=== PATIENT | male | born 1990 | race Caucasian/White ===

== ENCOUNTER 2016-12-25 18:33 | Emergency (ER) | payer OTHER ==
[2016-12-25] MEDS ORDERED: KETOROLAC 30 MG/ML VIAL (J1885) As Ordered ONE (19:38)
[2016-12-25 19:45] LABS: BASO % 0.4 % (0.0-1.0); EOS % 0.3 % (0.0-3.0); LARGE UNSTAINED CELL # 0.2 K/mm3 (0.0-0.4); LARGE UNSTAINED CELL % 2.2 % (0.0-4.0); LYMPH # 1.4 K/mm3 (1.5-6.5); LYMPH % 18.4 % (24.0-44.0); MEAN CORPUSCULAR HEMOGLOBIN 32.1 pg (27.0-33.0); MEAN CORPUSCULAR VOLUME 94.3 fl (80.0-96.0); MONO # 0.5 K/mm3 (0.0-0.8); MONO % 6.9 % (0.0-5.0); NEUTROPHILS % 71.8 % (36.0-66.0); PLATELET COUNT, AUTOMATED 248 k/mm3 (150-450); RED CELL DISTRIBUTION WIDTH 12.5 % (11.5-14.5)
[2016-12-25 20:13] LABS: ALBUMIN 4.6 GM/DL (3.2-5.2); ALBUMIN/GLOBULIN RATIO 1.21 (1.00-1.93); ALKALINE PHOSPHATASE 75 U/L (45-117); ALT/SGPT 33 U/L (12-78); AMYLASE 64 U/L (25-115); ANION GAP 8 MEQ/L (8-16); AST/SGOT 29 U/L (15-37); BILIRUBIN,DIRECT 0.1 MG/DL (0.0-0.2); BILIRUBIN,TOTAL 0.4 MG/DL (0.2-1.0); BLOOD UREA NITROGEN 11 MG/DL (7-18); CALCIUM LEVEL 9.1 MG/DL (8.5-10.1); CARBON DIOXIDE LEVEL 27 MEQ/L (21-32); CHLORIDE LEVEL 104 MEQ/L (98-107); GLOMERULAR FILTRATION RATE > 60.0 (>60); GLUCOSE, FASTING 102 MG/DL (70-105); POTASSIUM SERUM 4.2 MEQ/L (3.5-5.1); SODIUM LEVEL 139 MEQ/L (136-145); TOTAL PROTEIN 8.4 GM/DL (6.4-8.2)
[2016-12-25] MEDS ORDERED: MORPHINE 4 MG/ML 1ML SYRINGE As Ordered ONE (20:18)
[2016-12-25 21:08] LABS: CALCIUM OXALATE CRYSTALS SMALL
--- NOTE | 2016-12-25 22:08 | EDDOCDS ---
Nurse's Notes [facility] Name: Isreal Marion Age: 26 yrs Sex: Male : 1990 Arrival Date: 12/25/2016 Time: 18:33 Bed I4 / M4 Private MD: Other - Complete Info On Cds Diagnosis: Low back pain-LEFT Presentation: 12/25 18:41 Presenting complaint: Patient states: c/o abd pain - radiates from left lower back to bcj LUQ. + nausea no vomiting. no diarrhea. last BM last night. denies dysuria. no temp at home. Risk factors: the patient reports not having a history of previous torsion. Adult Sepsis Screening: The patient does not have new or worsening altered mentation. Patient's respiratory rate is less than 22. Systolic blood pressure is greater than 100. Patient has a qSOFA score of 0- Negative Sepsis Screen. Suicide/Homicide risk assessment- the patient denies having any suicidal and/or homicidal ideations and does not present with any other emotional, behavioral or mental health complaints. Status: Patient is not a field services manager or dependent. Transition of care: patient was not received from another setting of care. 18:41 Acuity: PATRICK Level 3 bcj 18:41 Method Of Arrival: Walkin/Carried/Asstd bcj Triage Assessment: 18:43 General: Appears in no apparent distress, comfortable, Behavior is cooperative. Pain: bcj Location: abdomen Pain currently is 6 out of 10 on a pain scale. HIV screening NA for this visit Offered previously. GI: Abdomen is flat. Historical: - Allergies: no known allergies; - Home Meds: 1. none - PMHx: none; - PSHx: none; - Social history: Smoking status: Patient states was never smoker of tobacco. No barriers to communication noted, The patient speaks fluent Dutch, Speaks appropriately for age. - Family history: Not pertinent. - : The pt / caregiver states he / she is not on anticoagulants. Home medication list is obtained from the patient. - Exposure Risk Screening:: None identified. Screenin:01 Screening information is obtained from the patient. Fall risk: No risks identified. [facility] Assistance ADL's: requires no assistance with activities of daily living. Abuse/DV Screen: The patient / caregiver reports he/she is: not in a situation that causes fear, pain or injury. Nutritional screening: No deficits noted. Advance Directives: There is no active DNR order. home support is adequate. Assessment: 19:41 Adult Sepsis Screening: The patient does not have new or worsening altered mentation. dsf Patient's respiratory rate is less than 22. Systolic blood pressure is greater than 100. Patient has a qSOFA score of 0- Negative Sepsis Screen. General: Appears in no apparent distress, Behavior is appropriate for age, cooperative. Pain: Location: left flank Pain currently is 7 out of 10 on a pain scale. Pain does not radiate. Quality of pain is described as burning. Neurological: Level of Consciousness is awake, alert. Cardiovascular: Capillary refill < 3 seconds. Respiratory: Airway is patent Respiratory effort is even, unlabored, Respiratory pattern is regular, symmetrical. GI: Abdomen is non- distended. Derm: Skin is pink, warm & dry. 20:35 General: Appears in no apparent distress, Behavior is appropriate for age, cooperative. dsf Pain: Pain currently is 4 out of 10 on a pain scale. Neurological: No deficits noted. Cardiovascular: No deficits noted. Respiratory: No deficits noted. Derm: Skin is pink, warm & dry. 22:01 General: Appears in no apparent distress, comfortable, Behavior is appropriate for age, cjh cooperative. Pain: Location: back Pain currently is 3 out of 10 on a pain scale. Neurological: Level of Consciousness is awake, alert, Oriented to person, place, time. Respiratory: Airway is patent Respiratory effort is even, unlabored, Respiratory pattern is regular, symmetrical. GI: assessed by PA assessed by PA. Vital Signs: 18:37 BP 152 / 86; Pulse 66; Resp 18 S; Temp 98.4(O); Pulse Ox 100% on R/A; Weight 94.8 kg gr2 (R); Height 69 in. (175.26 cm) (R); Pain 6/10; 21:39 BP 132 / 85; Pulse 56; Resp 18; Temp 99.0; Pulse Ox 97% on R/A; Pain 3/10; rn1 18:37 Body Mass Index 30.86 (94.80 kg, 175.26 cm) gr2 Vitals: 18:37 Log In Time: December 25, 2016 at 18:37. gr2 ED Course: 18:34 Patient visited by Elieser Joshi. gr2 18:34 Patient moved to Waiting gr2 18:37 Other - Complete Info On Cds is Private Physician. gr2 18:38 Patient visited by Elieser Joshi. gr2 18:43 Triage Initiated bcj 18:44 Patient visited by Mykel Paredes, SHIKHA. bcj 18:44 Patient moved to Triage 3 bcj 19:05 [facility] Dobson [facility] dt4 19:05 Ama Parsons MD is Attending Physician. dt4 19:05 Patient visited by Lucinda Dobson PA-C. dt4 19:27 Patient moved to I4 / M4 sew 19:34 Patient moved to Ultrasound en 19:41 Amylase Sent. dsf 19:41 Basic Metabolic Profile Sent. dsf 19:41 CBC with Diff Sent. dsf 19:41 Lipase Sent. dsf 19:41 Liver Profile Sent. dsf 19:41 Inserted saline lock: 18 gauge in right antecubital area The patient tolerated the dsf procedure well. 19:51 Patient moved to I4 / M4 en 20:35 Urine Culture Sent. rn1 20:35 Urinalysis Sent. rn1 20:36 Patient visited by Ayana Lund RN. dsf 21:32 [facility] is Referral Physician. dt4 21:45 Patient name changed from Isreal\Rosendo\Adelfo\S\Doni\S\ to Isreal\Rosendo\Yaya\S\Doni. EDMS 21:47 [facility] Payment Agreement was scanned into [employer] and attached to record. [facility] 22:01 The patient / caregiver is instructed regarding the plan of care and ED course. [facility] 22:01 Discontinued lock intact, bleeding controlled, pressure dressing applied, No [facility] redness/swelling at site. No procedures done that require assistance. Administered Medications: 19:53 Drug: ketorolac 30 mg [ketorolac 30 mg/mL (1 mL) injection solution (1 mL)] Route: IVP; dsf Site: right antecubital; 20:26 Drug: morphine 4 mg [morphine 4 mg/mL intravenous cartridge (1 mL)] Route: IVP; Site: jo3 right antecubital; Order Results: Lab Order: Amylase; SPEC'M 12/25/16 19:37 Test: AMYLASE; Value: 64; Range: 25-115; Units: U/L; Status: F Lab Order: Basic Metabolic Profile; SPEC'M 12/25/16 19:37 Test: GLUCOSE, FASTING; Value: 102; Range: 70-105; Units: MG/DL; Status: F Test: BLOOD UREA NITROGEN; Value: 11; Range: 7-18; Units: MG/DL; Status: F Test: CREATININE FOR GFR; Value: 1.00; Range: 0.70-1.30; Units: MG/DL; Status: F Test: GLOMERULAR FILTRATION RATE; Value: > 60.0; Range: >60; Status: F Test: SODIUM LEVEL; Value: 139; Range: 136-145; Units: MEQ/L; Status: F Test: POTASSIUM SERUM; Value: 4.2; Range: 3.5-5.1; Units: MEQ/L; Status: F Test: CHLORIDE LEVEL; Value: 104; Range: 98-107; Units: MEQ/L; Status: F Test: CARBON DIOXIDE LEVEL; Value: 27; Range: 21-32; Units: MEQ/L; Status: F Test: ANION GAP; Value: 8; Range: 8-16; Units: MEQ/L; Status: F Test: CALCIUM LEVEL; Value: 9.1; Range: 8.5-10.1; Units: MG/DL; Status: F Test Note: ; Units are mL/min/1.73 m2 Chronic Kidney Disease Staging per NKF: Stage I & II GFR >=60 Normal to Mildly Decreased Stage III GFR 30-59 Moderately Decreased Stage IV GFR 15-29 Severely Decreased Stage V GFR <15 Very Little GFR Left ESRD GFR <15 on SALON/SPA MANAGER Lab Order: CBC with Diff; SPEC'M 12/25/16 19:37 Test: WHITE BLOOD COUNT; Value: 7.0; Range: 4.0-10.0; Units: K/mm3; Status: F Test: RED BLOOD COUNT; Value: 4.78; Range: 4.30-6.10; Units: M/mm3; Status: F Test: HEMOGLOBIN; Value: 15.3; Range: 14.0-18.0; Units: g/dl; Status: F Test: HEMATOCRIT; Value: 45.1; Range: 42.0-52.0; Units: %; Status: F Test: MEAN CORPUSCULAR VOLUME; Value: 94.3; Range: 80.0-96.0; Units: fl; Status: F Test: MEAN CORPUSCULAR HEMOGLOBIN; Value: 32.1; Range: 27.0-33.0; Units: pg; Status: F Test: MEAN CORPUSCULAR HGB CONC; Value: 34.0; Range: 32.0-36.5; Units: g/dl; Status: F Test: RED CELL DISTRIBUTION WIDTH; Value: 12.5; Range: 11.5-14.5; Units: %; Status: F Test: PLATELET COUNT, AUTOMATED; Value: 248; Range: 150-450; Units: k/mm3; Status: F Test: NEUTROPHILS %; Value: 71.8; Range: 36.0-66.0; Abnormal: Above high normal; Units: %; Status: F Test: LYMPH %; Value: 18.4; Range: 24.0-44.0; Abnormal: Below low normal; Units: %; Status: F Test: MONO %; Value: 6.9; Range: 0.0-5.0; Abnormal: Above high normal; Units: %; Status: F Test: EOS %; Value: 0.3; Range: 0.0-3.0; Units: %; Status: F Test: BASO %; Value: 0.4; Range: 0.0-1.0; Units: %; Status: F Test: LARGE UNSTAINED CELL %; Value: 2.2; Range: 0.0-4.0; Units: %; Status: F Test: NEUTROPHILS #; Value: 5.0; Range: 1.8-7.7; Units: K/mm3; Status: F Test: LYMPH #; Value: 1.4; Range: 1.5-6.5; Abnormal: Below low normal; Units: K/mm3; Status: F Test: MONO #; Value: 0.5; Range: 0.0-0.8; Units: K/mm3; Status: F Test: EOS #; Value: 0.0; Range: 0.0-0.50; Units: K/mm3; Status: F Test: BASO #; Value: 0.0; Range: 0.0-0.2; Units: K/mm3; Status: F Test: LARGE UNSTAINED CELL #; Value: 0.2; Range: 0.0-0.4; Units: K/mm3; Status: F Lab Order: Lipase; SPEC'M 12/25/16 19:37 Test: LIPASE; Value: 98; Range: 73-393; Units: U/L; Status: F Lab Order: Liver Profile; SPEC'M 12/25/16 19:37 Test: AST/SGOT; Value: 29; Range: 15-37; Units: U/L; Status: F Test: ALT/SGPT; Value: 33; Range: 12-78; Units: U/L; Status: F Test: ALKALINE PHOSPHATASE; Value: 75; Range: 45-117; Units: U/L; Status: F Test: BILIRUBIN,TOTAL; Value: 0.4; Range: 0.2-1.0; Units: MG/DL; Status: F Test: BILIRUBIN,DIRECT; Value: 0.1; Range: 0.0-0.2; Units: MG/DL; Status: F Test: TOTAL PROTEIN; Value: 8.4; Range: 6.4-8.2; Abnormal: Above high normal; Units: GM/DL; Status: F Test: ALBUMIN; Value: 4.6; Range: 3.2-5.2; Units: GM/DL; Status: F Test: ALBUMIN/GLOBULIN RATIO; Value: 1.21; Range: 1.00-1.93; Status: F Lab Order: Urinalysis; SPEC'M 12/25/16 20:30 Test: APPEARANCE, URINE; Value: CLEAR; Range: CLEAR; Status: F Test: COLOR, URINE; Value: YELLOW; Range: YELLOW; Status: F Test: PH,URINE; Value: 5.0; Range: 5.0-9.0; Units: UNITS; Status: F Test: SPECIFIC GRAVITY URINE AUTO; Value: 1.032; Range: 1.002-1.035; Status: F Test: PROTEIN, URINE AUTO; Value: NEGATIVE; Range: NEGATIVE; Units: mg/dL; Status: F Test: GLUCOSE, URINE (UA) AUTO; Value: NEGATIVE; Range: NEGATIVE; Units: mg/dL; Status: F Test: KETONE, URINE AUTO; Value: 1+; Range: NEGATIVE; Abnormal: Above high normal; Units: mg/dL; Status: F Test: UROBILINOGEN, URINE AUTO; Value: 0.2; Range: 0.0-2.0; Units: mg/dL; Status: F Test: BILIRUBIN, URINE AUTO; Value: NEGATIVE; Range: NEGATIVE; Status: F Test: NITRITE, URINE AUTO; Value: NEGATIVE; Range: NEGATIVE; Status: F Test: LEUKOCYTE ESTERASE, URINE AUTO; Value: NEGATIVE; Range: NEGATIVE; Status: F Test: BLOOD, URINE BLOOD; Value: NEGATIVE; Range: NEGATIVE; Status: F Test: WBC, URINE AUTO; Value: 0; Range: 0-3; Units: /HPF; Status: F Test: RBC, URINE AUTO; Value: 1; Range: 0-3; Units: /HPF; Status: F Test: BACTERIA, URINE AUTO; Value: NEGATIVE; Range: NEGATIVE; Status: F Test: SQUAMOUS EPITHELIAL CELL UR AU; Value: 0; Range: 0-6; Units: /HPF; Status: F Test: MUCUS, URINE; Value: MODERATE; Range: NEGATIVE; Status: F Test: HYALINE CAST, URINE AUTO; Value: 2; Range: 0-1; Units: /LPF; Status: F Test: CALCIUM OXALATE CRYSTALS; Value: SMALL; Range: NONE; Status: F Outcome: 21:34 Discharge ordered by Provider. dt4 22:01 Discharge Assessment: Patient awake, alert and oriented x 3. No cognitive and/or [facility] functional deficits noted. Patient verbalized understanding of disposition instructions. patient administered narcotics - yes. Pt provided with safe discharge. The following High Risk Discharge criteria are identified: None. Discharged to home ambulatory. Condition: good Condition: stable Condition: improved. Discharge instructions given to patient, Instructed on discharge instructions, follow up and referral plans. medication usage, Demonstrated understanding of instructions, medications, Pt was receptive of discharge instructions/ teaching. Prescriptions given X 1. CT Study completed. Property :Personal belongings accompany Pt. 22:08 Patient left the ED. [facility] Signatures: Dispatcher [employer] EDMykel Lora, RN RN Radha MonteiroRN RN Ayana rBianRN RN Brit Gonzalez RN RN [facility] Lorelei Pinon Gainslee gr2 Lucinda Dobson, PA-C PA-C dt4 Kindra Perales Pipo Lerma rn1 Kira Starks Corrections: (The following items were deleted from the chart) 22:02 22:01 Pain: Location: back Pain currently is 7 out of 10 on a pain scale. [facility]
--- NOTE | 2016-12-25 22:08 | EDDOCDS ---
Physician Documentation [facility] Name: Isreal Marion Age: 26 yrs Sex: Male : 1990 Arrival Date: 12/25/2016 Time: 18:33 Bed I4 / M4 Private MD: Other - Complete Info On Cds Disposition: 12/25/16 21:34 Discharged to Home/Self Care. Impression: Low back pain - LEFT. - Condition is Stable. - Discharge Instructions: Back Pain, Adult. - Prescriptions for Naprosyn 500 mg Oral Tablet - take 1 tablet by ORAL route every 12 hours As needed take with food; 30 tablet. - Medication Reconciliation, Local Pharmacy Hours form. - Follow up: Emergency Department; When: As needed; Reason: Worsening of conditions. Follow up: [facility]; When: Call to arrange an appointment; Reason: Recheck today's complaints, Continuance of care, To establish care. - Problem is new. - Symptoms have improved. - Notes: YOUR ULTRASOUND AND LABWORK/URINE TESTS DID NOT SHOW ANY SIGNS OF INFECTION OR ABNORMALITIES TODAY. PLEASE FOLLOW UP WITH PRIMARY CARE IN THE NEXT WEEK TO RECHECK YOUR SYMPTOMS. ANY WORSENING SYMPTOMS, PLEASE RETURN TO THE ER. Historical: - Allergies: no known allergies; - Home Meds: 1. none - PMHx: none; - PSHx: none; - Social history: Smoking status: Patient states was never smoker of tobacco. No barriers to communication noted, The patient speaks fluent Wolof, Speaks appropriately for age. - Family history: Not pertinent. - : The pt / caregiver states he / she is not on anticoagulants. Home medication list is obtained from the patient. - Exposure Risk Screening:: None identified. Vital Signs: 12/25 18:37 BP 152 / 86; Pulse 66; Resp 18 S; Temp 98.4(O); Pulse Ox 100% on R/A; Weight 94.8 kg / gr2 209 lbs (R); Height 69 in. (175.26 cm) (R); Pain 6/10; 21:39 BP 132 / 85; Pulse 56; Resp 18; Temp 99.0; Pulse Ox 97% on R/A; Pain 3/10; rn1 18:37 Body Mass Index 30.86 (94.80 kg, 175.26 cm) gr2 MDM: 19:30 ketorolac 30 mg IVP once ordered. dt4 19:30 IV Saline Lock ordered. dt4 19:30 Undress patient appropriately for examination ordered. dt4 19:30 Amylase Ordered. EDMS 19:30 Basic Metabolic Profile Ordered. EDMS 19:30 CBC with Diff Ordered. EDMS 19:30 Lipase Ordered. EDMS 19:30 Liver Profile Ordered. EDMS 19:30 Urinalysis Ordered. EDMS 19:33 Urine Culture Ordered. EDMS 19:34 ABD US: Limited Ordered. EDMS 19:34 NOTHING BY MOUTH+DIET ordered. EDMS 20:16 morphine 4 mg IVP once ordered. dt4 20:52 Financial registration complete. [facility] 21:47 [facility] Payment Agreement was scanned into [employer] and attached to record. [facility] Administered Medications: 19:53 Drug: ketorolac 30 mg [ketorolac 30 mg/mL (1 mL) injection solution (1 mL)] Route: IVP; dsf Site: right antecubital; 20:26 Drug: morphine 4 mg [morphine 4 mg/mL intravenous cartridge (1 mL)] Route: IVP; Site: jo3 right antecubital; Signatures: Dispatcher [employer] Mykel Goodwin RN Brit Garza RN RN Lucinda Jauregui PA-C PA-C dtKindra Fonseca [facility] Radha Stone RN, Desiree RN dsf The chart was reviewed and I authenticate all verbal orders and agree with the evaluation and treatment provided.Attachments: 21:47 [facility] Payment Agreement [facility] MTDD
--- NOTE | 2016-12-26 08:24 | REP ---
Clinical: Left upper quadrant pain. Technique: Real time hansen scale and color ultrasound examination using curved array transducer. Findings: The spleen is normal in contour, size, echogenicity and without focal splenic lesion identified. Spleen measures 9.6 x 3.1 x 9.1 cm (270 ml). The left kidney is normal in reniform shape and echogenicity without hydronephrosis, nephrolithiasis, cystic or renal mass lesion and measures 13.2 x 5.2 x 5.0 cm. 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 No free fluid in the left upper quadrant. Impression: Essentially normal left upper quadrant including spleen and kidney. 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 Signed by Dread Flores MD 12/26/2016 08:15 A
--- NOTE | 2016-12-27 23:09 | EDDOCDS ---
Nurse's Notes [facility] Name: Isreal Marion Age: 26 yrs Sex: Male : 1990 Arrival Date: 12/25/2016 Time: 18:33 Bed I4 / M4 Private MD: Other - Complete Info On Cds Diagnosis: Low back pain-LEFT Presentation: 12/25 18:41 Presenting complaint: Patient states: c/o abd pain - radiates from left lower back to bcj LUQ. + nausea no vomiting. no diarrhea. last BM last night. denies dysuria. no temp at home. Risk factors: the patient reports not having a history of previous torsion. Adult Sepsis Screening: The patient does not have new or worsening altered mentation. Patient's respiratory rate is less than 22. Systolic blood pressure is greater than 100. Patient has a qSOFA score of 0- Negative Sepsis Screen. Suicide/Homicide risk assessment- the patient denies having any suicidal and/or homicidal ideations and does not present with any other emotional, behavioral or mental health complaints. Status: Patient is not a industrial garage servicer or dependent. Transition of care: patient was not received from another setting of care. 18:41 Acuity: PATRICK Level 3 bcj 18:41 Method Of Arrival: Walkin/Carried/Asstd bcj Triage Assessment: 18:43 General: Appears in no apparent distress, comfortable, Behavior is cooperative. Pain: bcj Location: abdomen Pain currently is 6 out of 10 on a pain scale. HIV screening NA for this visit Offered previously. GI: Abdomen is flat. Historical: - Allergies: no known allergies; - Home Meds: 1. none - PMHx: none; - PSHx: none; - Social history: Smoking status: Patient states was never smoker of tobacco. No barriers to communication noted, The patient speaks fluent Swedish, Speaks appropriately for age. - Family history: Not pertinent. - : The pt / caregiver states he / she is not on anticoagulants. Home medication list is obtained from the patient. - Exposure Risk Screening:: None identified. Screenin:01 Screening information is obtained from the patient. Fall risk: No risks identified. [facility] Assistance ADL's: requires no assistance with activities of daily living. Abuse/DV Screen: The patient / caregiver reports he/she is: not in a situation that causes fear, pain or injury. Nutritional screening: No deficits noted. Advance Directives: There is no active DNR order. home support is adequate. Assessment: 19:41 Adult Sepsis Screening: The patient does not have new or worsening altered mentation. dsf Patient's respiratory rate is less than 22. Systolic blood pressure is greater than 100. Patient has a qSOFA score of 0- Negative Sepsis Screen. General: Appears in no apparent distress, Behavior is appropriate for age, cooperative. Pain: Location: left flank Pain currently is 7 out of 10 on a pain scale. Pain does not radiate. Quality of pain is described as burning. Neurological: Level of Consciousness is awake, alert. Cardiovascular: Capillary refill < 3 seconds. Respiratory: Airway is patent Respiratory effort is even, unlabored, Respiratory pattern is regular, symmetrical. GI: Abdomen is non- distended. Derm: Skin is pink, warm & dry. 20:35 General: Appears in no apparent distress, Behavior is appropriate for age, cooperative. dsf Pain: Pain currently is 4 out of 10 on a pain scale. Neurological: No deficits noted. Cardiovascular: No deficits noted. Respiratory: No deficits noted. Derm: Skin is pink, warm & dry. 22:01 General: Appears in no apparent distress, comfortable, Behavior is appropriate for age, cjh cooperative. Pain: Location: back Pain currently is 3 out of 10 on a pain scale. Neurological: Level of Consciousness is awake, alert, Oriented to person, place, time. Respiratory: Airway is patent Respiratory effort is even, unlabored, Respiratory pattern is regular, symmetrical. GI: assessed by PA assessed by PA. Vital Signs: 18:37 BP 152 / 86; Pulse 66; Resp 18 S; Temp 98.4(O); Pulse Ox 100% on R/A; Weight 94.8 kg gr2 (R); Height 69 in. (175.26 cm) (R); Pain 6/10; 21:39 BP 132 / 85; Pulse 56; Resp 18; Temp 99.0; Pulse Ox 97% on R/A; Pain 3/10; rn1 18:37 Body Mass Index 30.86 (94.80 kg, 175.26 cm) gr2 Vitals: 18:37 Log In Time: December 25, 2016 at 18:37. gr2 ED Course: 18:34 Patient visited by Elieser Joshi. gr2 18:34 Patient moved to Waiting gr2 18:37 Other - Complete Info On Cds is Private Physician. gr2 18:38 Patient visited by Elieser Joshi. gr2 18:43 Triage Initiated bcj 18:44 Patient visited by Mykel Paredes, SHIKHA. bcj 18:44 Patient moved to Triage 3 bcj 19:05 [facility] dt4 19:05 Ama Parsons MD is Attending Physician. dt4 19:05 Patient visited by Lucinda Dobson PA-C. dt4 19:27 Patient moved to I4 / M4 sew 19:34 Patient moved to Ultrasound en 19:41 Amylase Sent. dsf 19:41 Basic Metabolic Profile Sent. dsf 19:41 CBC with Diff Sent. dsf 19:41 Lipase Sent. dsf 19:41 Liver Profile Sent. dsf 19:41 Inserted saline lock: 18 gauge in right antecubital area The patient tolerated the dsf procedure well. 19:51 Patient moved to I4 / M4 en 20:35 Urine Culture Sent. rn1 20:35 Urinalysis Sent. rn1 20:36 Patient visited by Ayana Lund RN. dsf 21:32 [facility] is Referral Physician. dt4 21:45 Patient name changed from Isreal\Rosendo\Adelfo\S\Doni\S\ to Isreal\S\Yaya\S\Doni. EDMS 21:47 [facility] Payment Agreement was scanned into [employer] and attached to record. [facility] 22:01 The patient / caregiver is instructed regarding the plan of care and ED course. [facility] 22:01 Discontinued lock intact, bleeding controlled, pressure dressing applied, No [facility] redness/swelling at site. No procedures done that require assistance. 12/26 08:45 ABD US: Limited Returned. EDMS 12:31 T-Sheet-- Draft Copy was scanned into [employer] and attached to record. gb 12:31 Radiology Report was scanned into [employer] and attached to record. gb Administered Medications: 12/25 19:53 Drug: ketorolac 30 mg [ketorolac 30 mg/mL (1 mL) injection solution (1 mL)] Route: IVP; dsf Site: right antecubital; 20:26 Drug: morphine 4 mg [morphine 4 mg/mL intravenous cartridge (1 mL)] Route: IVP; Site: jo right antecubital; Order Results: Lab Order: Amylase; SPEC'M 12/25/16 19:37 Test: AMYLASE; Value: 64; Range: 25-115; Units: U/L; Status: F Lab Order: Basic Metabolic Profile; SPEC'M 12/25/16 19:37 Test: GLUCOSE, FASTING; Value: 102; Range: 70-105; Units: MG/DL; Status: F Test: BLOOD UREA NITROGEN; Value: 11; Range: 7-18; Units: MG/DL; Status: F Test: CREATININE FOR GFR; Value: 1.00; Range: 0.70-1.30; Units: MG/DL; Status: F Test: GLOMERULAR FILTRATION RATE; Value: > 60.0; Range: >60; Status: F Test: SODIUM LEVEL; Value: 139; Range: 136-145; Units: MEQ/L; Status: F Test: POTASSIUM SERUM; Value: 4.2; Range: 3.5-5.1; Units: MEQ/L; Status: F Test: CHLORIDE LEVEL; Value: 104; Range: 98-107; Units: MEQ/L; Status: F Test: CARBON DIOXIDE LEVEL; Value: 27; Range: 21-32; Units: MEQ/L; Status: F Test: ANION GAP; Value: 8; Range: 8-16; Units: MEQ/L; Status: F Test: CALCIUM LEVEL; Value: 9.1; Range: 8.5-10.1; Units: MG/DL; Status: F Test Note: ; Units are mL/min/1.73 m2 Chronic Kidney Disease Staging per NKF: Stage I & II GFR >=60 Normal to Mildly Decreased Stage III GFR 30-59 Moderately Decreased Stage IV GFR 15-29 Severely Decreased Stage V GFR <15 Very Little GFR Left ESRD GFR <15 on ACID DIPPER Lab Order: CBC with Diff; SPEC'M 12/25/16 19:37 Test: WHITE BLOOD COUNT; Value: 7.0; Range: 4.0-10.0; Units: K/mm3; Status: F Test: RED BLOOD COUNT; Value: 4.78; Range: 4.30-6.10; Units: M/mm3; Status: F Test: HEMOGLOBIN; Value: 15.3; Range: 14.0-18.0; Units: g/dl; Status: F Test: HEMATOCRIT; Value: 45.1; Range: 42.0-52.0; Units: %; Status: F Test: MEAN CORPUSCULAR VOLUME; Value: 94.3; Range: 80.0-96.0; Units: fl; Status: F Test: MEAN CORPUSCULAR HEMOGLOBIN; Value: 32.1; Range: 27.0-33.0; Units: pg; Status: F Test: MEAN CORPUSCULAR HGB CONC; Value: 34.0; Range: 32.0-36.5; Units: g/dl; Status: F Test: RED CELL DISTRIBUTION WIDTH; Value: 12.5; Range: 11.5-14.5; Units: %; Status: F Test: PLATELET COUNT, AUTOMATED; Value: 248; Range: 150-450; Units: k/mm3; Status: F Test: NEUTROPHILS %; Value: 71.8; Range: 36.0-66.0; Abnormal: Above high normal; Units: %; Status: F Test: LYMPH %; Value: 18.4; Range: 24.0-44.0; Abnormal: Below low normal; Units: %; Status: F Test: MONO %; Value: 6.9; Range: 0.0-5.0; Abnormal: Above high normal; Units: %; Status: F Test: EOS %; Value: 0.3; Range: 0.0-3.0; Units: %; Status: F Test: BASO %; Value: 0.4; Range: 0.0-1.0; Units: %; Status: F Test: LARGE UNSTAINED CELL %; Value: 2.2; Range: 0.0-4.0; Units: %; Status: F Test: NEUTROPHILS #; Value: 5.0; Range: 1.8-7.7; Units: K/mm3; Status: F Test: LYMPH #; Value: 1.4; Range: 1.5-6.5; Abnormal: Below low normal; Units: K/mm3; Status: F Test: MONO #; Value: 0.5; Range: 0.0-0.8; Units: K/mm3; Status: F Test: EOS #; Value: 0.0; Range: 0.0-0.50; Units: K/mm3; Status: F Test: BASO #; Value: 0.0; Range: 0.0-0.2; Units: K/mm3; Status: F Test: LARGE UNSTAINED CELL #; Value: 0.2; Range: 0.0-0.4; Units: K/mm3; Status: F Lab Order: Lipase; [facility] 12/25/16 19:37 Test: LIPASE; Value: 98; Range: 73-393; Units: U/L; Status: F Lab Order: Liver Profile; [facility] 12/25/16 19:37 Test: AST/SGOT; Value: 29; Range: 15-37; Units: U/L; Status: F Test: ALT/SGPT; Value: 33; Range: 12-78; Units: U/L; Status: F Test: ALKALINE PHOSPHATASE; Value: 75; Range: 45-117; Units: U/L; Status: F Test: BILIRUBIN,TOTAL; Value: 0.4; Range: 0.2-1.0; Units: MG/DL; Status: F Test: BILIRUBIN,DIRECT; Value: 0.1; Range: 0.0-0.2; Units: MG/DL; Status: F Test: TOTAL PROTEIN; Value: 8.4; Range: 6.4-8.2; Abnormal: Above high normal; Units: GM/DL; Status: F Test: ALBUMIN; Value: 4.6; Range: 3.2-5.2; Units: GM/DL; Status: F Test: ALBUMIN/GLOBULIN RATIO; Value: 1.21; Range: 1.00-1.93; Status: F Lab Order: Urinalysis; [facility] 12/25/16 20:30 Test: APPEARANCE, URINE; Value: CLEAR; Range: CLEAR; Status: F Test: COLOR, URINE; Value: YELLOW; Range: YELLOW; Status: F Test: PH,URINE; Value: 5.0; Range: 5.0-9.0; Units: UNITS; Status: F Test: SPECIFIC GRAVITY URINE AUTO; Value: 1.032; Range: 1.002-1.035; Status: F Test: PROTEIN, URINE AUTO; Value: NEGATIVE; Range: NEGATIVE; Units: mg/dL; Status: F Test: GLUCOSE, URINE (UA) AUTO; Value: NEGATIVE; Range: NEGATIVE; Units: mg/dL; Status: F Test: KETONE, URINE AUTO; Value: 1+; Range: NEGATIVE; Abnormal: Above high normal; Units: mg/dL; Status: F Test: UROBILINOGEN, URINE AUTO; Value: 0.2; Range: 0.0-2.0; Units: mg/dL; Status: F Test: BILIRUBIN, URINE AUTO; Value: NEGATIVE; Range: NEGATIVE; Status: F Test: NITRITE, URINE AUTO; Value: NEGATIVE; Range: NEGATIVE; Status: F Test: LEUKOCYTE ESTERASE, URINE AUTO; Value: NEGATIVE; Range: NEGATIVE; Status: F Test: BLOOD, URINE BLOOD; Value: NEGATIVE; Range: NEGATIVE; Status: F Test: WBC, URINE AUTO; Value: 0; Range: 0-3; Units: /HPF; Status: F Test: RBC, URINE AUTO; Value: 1; Range: 0-3; Units: /HPF; Status: F Test: BACTERIA, URINE AUTO; Value: NEGATIVE; Range: NEGATIVE; Status: F Test: SQUAMOUS EPITHELIAL CELL UR AU; Value: 0; Range: 0-6; Units: /HPF; Status: F Test: MUCUS, URINE; Value: MODERATE; Range: NEGATIVE; Status: F Test: HYALINE CAST, URINE AUTO; Value: 2; Range: 0-1; Units: /LPF; Status: F Test: CALCIUM OXALATE CRYSTALS; Value: SMALL; Range: NONE; Status: F Lab Order: Urine Culture; SPEC'M 12/25/16 20:30 Test: URINE CULTURE; Value: <EXTERNAL COMMENT eCWMed> FULL REPORT IN LAB NOTES (eCW and Medent).; Status: F Test: URINE CULTURE; Value: URINE CULTURE RESULT NO GROWTH; Status: F Radiology Order: ABD US: Limited Test: ABD US: Limited REASON FOR EXAMINATION: LUQ PAIN, LEFT FLANK PAIN; Clinical: Left upper quadrant pain.; ; Technique: Real time hansen scale and color ultrasound examination using curved; array transducer.; ; Findings: The spleen is normal in contour, size, echogenicity and without focal; splenic lesion identified. Spleen measures 9.6 x 3.1 x 9.1 cm (270 ml). The; left kidney is normal in reniform shape and echogenicity without hydronephrosis,; nephrolithiasis, cystic or renal mass lesion and measures 13.2 x 5.2 x 5.0 cm.; There is subtle suggestion for duplicated collecting system without; hydronephrosis. No free fluid in the left upper quadrant.; ; Impression:; Essentially normal left upper quadrant including spleen and kidney. 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 dt4 22:01 Discharge Assessment: Patient awake, alert and oriented x 3. No cognitive and/or [facility] functional deficits noted. Patient verbalized understanding of disposition instructions. patient administered narcotics - yes. Pt provided with safe discharge. The following High Risk Discharge criteria are identified: None. Discharged to home ambulatory. Condition: good Condition: stable Condition: improved. Discharge instructions given to patient, Instructed on discharge instructions, follow up and referral plans. medication usage, Demonstrated understanding of instructions, medications, Pt was receptive of discharge instructions/ teaching. Prescriptions given X 1. CT Study completed. Property :Personal belongings accompany Pt. 22:08 Patient left the ED. [facility] Signatures: Dispatcher [employer] EDMS Mykel Paredes, RN RN Tana Stark, Reg Reg Radha BeltreRN RN Ayana BrianRN RN Brit GonzalezRN RN [facility] Lorelei Pinon Gainslee gr2 Lucinda Dobson, PA-C PA-C dt4 Kindra Perales Robert rn1 Kira Starks Corrections: (The following items were deleted from the chart) 22:02 22:01 Pain: Location: back Pain currently is 7 out of 10 on a pain scale. [facility] Chart Complete MTDD
--- NOTE | 2016-12-27 23:09 | EDDOCDS ---
Physician Documentation [facility] Name: Isreal Marion Age: 26 yrs Sex: Male : 1990 Arrival Date: 12/25/2016 Time: 18:33 Bed I4 / M4 Private MD: Other - Complete Info On Cds Disposition: 12/25/16 21:34 Discharged to Home/Self Care. Impression: Low back pain - LEFT. - Condition is Stable. - Discharge Instructions: Back Pain, Adult. - Prescriptions for Naprosyn 500 mg Oral Tablet - take 1 tablet by ORAL route every 12 hours As needed take with food; 30 tablet. - Medication Reconciliation, Local Pharmacy Hours form. - Follow up: Emergency Department; When: As needed; Reason: Worsening of conditions. [facility]: [facility]; When: Call to arrange an appointment; Reason: Recheck today's complaints, Continuance of care, To establish care. - Problem is new. - Symptoms have improved. - Notes: YOUR ULTRASOUND AND LABWORK/URINE TESTS DID NOT SHOW ANY SIGNS OF INFECTION OR ABNORMALITIES TODAY. PLEASE FOLLOW UP WITH PRIMARY CARE IN THE NEXT WEEK TO RECHECK YOUR SYMPTOMS. ANY WORSENING SYMPTOMS, PLEASE RETURN TO THE ER. Historical: - Allergies: no known allergies; - Home Meds: 1. none - PMHx: none; - PSHx: none; - Social history: Smoking status: Patient states was never smoker of tobacco. No barriers to communication noted, The patient speaks fluent Albanian, Speaks appropriately for age. - Family history: Not pertinent. - : The pt / caregiver states he / she is not on anticoagulants. Home medication list is obtained from the patient. - Exposure Risk Screening:: None identified. Vital Signs: 12/25 18:37 BP 152 / 86; Pulse 66; Resp 18 S; Temp 98.4(O); Pulse Ox 100% on R/A; Weight 94.8 kg / gr2 209 lbs (R); Height 69 in. (175.26 cm) (R); Pain 6/10; 21:39 BP 132 / 85; Pulse 56; Resp 18; Temp 99.0; Pulse Ox 97% on R/A; Pain 3/10; rn1 18:37 Body Mass Index 30.86 (94.80 kg, 175.26 cm) gr2 MDM: 19:30 ketorolac 30 mg IVP once ordered. dt4 19:30 IV Saline Lock ordered. dt4 19:30 Undress patient appropriately for examination ordered. dt4 19:30 Amylase Ordered. EDMS 19:30 Basic Metabolic Profile Ordered. EDMS 19:30 CBC with Diff Ordered. EDMS 19:30 Lipase Ordered. EDMS 19:30 Liver Profile Ordered. EDMS 19:30 Urinalysis Ordered. EDMS 19:33 Urine Culture Ordered. EDMS 19:34 ABD US: Limited Ordered. EDMS 19:34 NOTHING BY MOUTH+DIET ordered. EDMS 20:16 morphine 4 mg IVP once ordered. dt4 20:52 Financial registration complete. [facility] :[facility] Payment Agreement was scanned into [employer] and attached to record. [facility] 12/26 12:31 T-Sheet-- Draft Copy was scanned into [employer] and attached to record. 12:31 Radiology Report was scanned into [employer] and attached to record. gb Administered Medications: 12/25 19:53 Drug: ketorolac 30 mg [ketorolac 30 mg/mL (1 mL) injection solution (1 mL)] Route: IVP; dsf Site: right antecubital; 20:26 Drug: morphine 4 mg [morphine 4 mg/mL intravenous cartridge (1 mL)] Route: IVP; Site: jo3 right antecubital; Signatures: Dispatcher [employer] Mykel Goodwin, RN RN Tana Stark, Reg Reg Brit Cedeno RN RN [facility] Lucinda Dobson PA-C PA-C dt4 Hook, Sandra [facility] Radha Stone RN, Desiree RN dsf The chart was reviewed and I authenticate all verbal orders and agree with the evaluation and treatment provided.Attachments: :[facility] Payment Agreement [facility] 12/26 12:31 T-Sheet-- Draft Copy Chart Complete MTDD
--- NOTE | 2016-12-27 23:09 | EDDOCDS ---
Physician Documentation [facility] Name: Isreal Marion Age: 26 yrs Sex: Male : 1990 Arrival Date: 12/25/2016 Time: 18:33 Bed I4 / M4 Private MD: Other - Complete Info On Cds Disposition: 12/25/16 21:34 Discharged to Home/Self Care. Impression: Low back pain - LEFT. - Condition is Stable. - Discharge Instructions: Back Pain, Adult. - Prescriptions for Naprosyn 500 mg Oral Tablet - take 1 tablet by ORAL route every 12 hours As needed take with food; 30 tablet. - Medication Reconciliation, Local Pharmacy Hours form. - Follow up: Emergency Department; When: As needed; Reason: Worsening of conditions. [facility]: [facility]; When: Call to arrange an appointment; Reason: Recheck today's complaints, Continuance of care, To establish care. - Problem is new. - Symptoms have improved. - Notes: YOUR ULTRASOUND AND LABWORK/URINE TESTS DID NOT SHOW ANY SIGNS OF INFECTION OR ABNORMALITIES TODAY. PLEASE FOLLOW UP WITH PRIMARY CARE IN THE NEXT WEEK TO RECHECK YOUR SYMPTOMS. ANY WORSENING SYMPTOMS, PLEASE RETURN TO THE ER. Historical: - Allergies: no known allergies; - Home Meds: 1. none - PMHx: none; - PSHx: none; - Social history: Smoking status: Patient states was never smoker of tobacco. No barriers to communication noted, The patient speaks fluent Belarusian, Speaks appropriately for age. - Family history: Not pertinent. - : The pt / caregiver states he / she is not on anticoagulants. Home medication list is obtained from the patient. - Exposure Risk Screening:: None identified. Vital Signs: 12/25 18:37 BP 152 / 86; Pulse 66; Resp 18 S; Temp 98.4(O); Pulse Ox 100% on R/A; Weight 94.8 kg / gr2 209 lbs (R); Height 69 in. (175.26 cm) (R); Pain 6/10; 21:39 BP 132 / 85; Pulse 56; Resp 18; Temp 99.0; Pulse Ox 97% on R/A; Pain 3/10; rn1 18:37 Body Mass Index 30.86 (94.80 kg, 175.26 cm) gr2 MDM: 19:30 ketorolac 30 mg IVP once ordered. dt4 19:30 IV Saline Lock ordered. dt4 19:30 Undress patient appropriately for examination ordered. dt4 19:30 Amylase Ordered. EDMS 19:30 Basic Metabolic Profile Ordered. EDMS 19:30 CBC with Diff Ordered. EDMS 19:30 Lipase Ordered. EDMS 19:30 Liver Profile Ordered. EDMS 19:30 Urinalysis Ordered. EDMS 19:33 Urine Culture Ordered. EDMS 19:34 ABD US: Limited Ordered. EDMS 19:34 NOTHING BY MOUTH+DIET ordered. EDMS 20:16 morphine 4 mg IVP once ordered. dt4 20:52 Financial registration complete. [facility] :47 [facility] Payment Agreement was scanned into [employer] and attached to record. [facility] 12/26 12:31 T-Sheet-- Draft Copy was scanned into [employer] and attached to record. 12:31 Radiology Report was scanned into [employer] and attached to record. gb Administered Medications: 12/25 19:53 Drug: ketorolac 30 mg [ketorolac 30 mg/mL (1 mL) injection solution (1 mL)] Route: IVP; dsf Site: right antecubital; 20:26 Drug: morphine 4 mg [morphine 4 mg/mL intravenous cartridge (1 mL)] Route: IVP; Site: jo3 right antecubital; Signatures: Dispatcher [employer] Mykel Goodwin, RN RN Tana Stark, Reg Reg Brit Cedeno RN RN [facility] Lucinda Dobson PA-C PA-C dt4 Hook, Sandra [facility] Radha Stone RN, Desiree RN dsf The chart was reviewed and I authenticate all verbal orders and agree with the evaluation and treatment provided.Attachments: :47 [facility] Payment Agreement [facility] 12/26 12:31 T-Sheet-- Draft Copy Chart Complete MTDD
== END 2016-12-25 22:08 | disposition home or self-care (01) ==
LOC: M ED 18:33
DX: M54.5 Low back pain (principal)
CPT/HCPCS: 76705; 80048; 80076; 81001; 82150; 83690; 85025; 87086; 96374; 96375; 99284; J1885